=== PATIENT | female | born 1970 | race Caucasian/White ===

== ENCOUNTER 2018-06-30 05:06 | Day surgery (SDC) | payer OTHER ==
[2018-06-21 08:45] VITALS: BMI 23.8
[2018-06-30] MEDS ORDERED: ONDANSETRON 4 MG/2 ML VIAL IVPUSH PRN ×2 (10:18→13:36)
[2018-06-30] MEDS ORDERED: LACTATED RINGERS SOLUTION 1,000 ML IV SCH (10:30)
[2018-06-30] MEDS ORDERED: PROPOFOL 20 ML ONE ×4 (11:23)
[2018-06-30] MEDS ORDERED: LIDOCAINE HCL 1%, 10 MG/ML (20ML VIAL) ONE (11:33)
[2018-06-30] MEDS ORDERED: BUPIVACAINE HCL/PF 0.25% (2.5MG/ML) 10 ML VIAL ONE (11:33)
[2018-06-30] MEDS ORDERED: MIDAZOLAM HCL 2 MG/2 ML SINGLE DOSE VIAL ONE (11:38)
[2018-06-30] MEDS ORDERED: KETAMINE HCL 200 MG/20 ML VIAL ONE (11:53)
[2018-06-30] MEDS ORDERED: GLYCOPYRROLATE 0.2 MG/1 ML VIAL ONE (11:54)
[2018-06-30] MEDS ORDERED: ceFAZolin SODIUM 1 GM VIAL ONE (11:57)
[2018-06-30] MEDS ORDERED: BUPIVACAINE HCL/PF 0.5% (5MG/ML) 10 ML VIAL ONE (12:00)
[2018-06-30] MEDS ORDERED: LIDOCAINE 1%/EPI 1:100000 (20 ML MULTI DOSE VIAL) ONE (12:00)
[2018-06-30] MEDS ORDERED: BACITRACIN 15 GM TUBE TOPICAL OINTMENT ONE (12:02)
[2018-06-30] MEDS ORDERED: LIDOCAINE 1%/EPI 1:100000 (50 ML MULTI DOSE VIAL) INF ONE ×2 (12:12)
[2018-06-30] MEDS ORDERED: BUPIVACAINE HCL/PF 0.5% (5MG/ML) 10 ML VIAL IJ ONE ×2 (12:12)
--- NOTE | 2018-06-30 12:37 | OP ---
Operative Note - Note: Operative Date: 06/30/18 Pre-Operative Diagnosis: Cervical lymphadenopathy Operation: Left cervical lymph node excision Post-Operative Diagnosis: Same as Pre-op Surgeon: Jasper Boyd Bench Lay Out Technician: Sanjay Lopez Anesthesiologist/CANVAS BASTER: Escobar Frey Anesthesia: MAC Estimated Blood Loss (mls): 2 Operative Report Dictated: Yes
--- NOTE | 2018-06-30 12:38 | SURG ---
Surgery Drawing Frame Tender Note Drawing Frame Tender: Sanjay Lopez PA-C Date of Service: 06/30/18 Diagnosis: Left cervical lymphadenopathy Procedure: excision of left cervical lymph node I was present for the entirety of the operative procedure. For further detail, please refer to operative report. Visit type - Case Type Case Type: Scheduled - Emergency Emergency Visit: No - New patient This patient is new to me today: Yes Date on this admission: 06/30/18
[2018-06-30] MEDS ORDERED: ONDANSETRON 4 MG/2 ML VIAL ONE ×3 (12:45→16:16)
--- NOTE | 2018-06-30 14:25 | OP ---
DATE OF OPERATION: 06/30/2018 SURGICAL ATTENDING: Philip Mckeon MD FORENSIC MANAGER: ANAHI Holbrook PREOPERATIVE DIAGNOSIS: Left cervical lymph node. POSTOPERATIVE DIAGNOSIS: Left cervical lymph node. ANESTHESIA: Local with sedation. PROCEDURE: LEFT level 5 cervical lymph node biopsy. DESCRIPTION OF PROCEDURE: The patient was taken into the operating room and placed in a supine position. Given IV sedation. Prepped and draped in the usual sterile fashion. Neck ultrasound revealed a solitary enlarged lymph node in left level 5. Local anesthesia was administered, and a 2-cm horizontal incision was made in a left posterior triangle skin crease. This was carried down through subcutaneous tissues and platysma. The accessory nerve was identified, dissected, and preserved laterally. The lymph node was identified, dissected free from surrounding tissues, removed, and sent to Pathology for fresh evaluation. Hemostasis was achieved. The wound was then closed in 2 layers. Dermabond was placed. The patient was then awakened and taken to recovery in stable condition. Dr. Mckeon, attending surgeon was present throughout the entire procedure. HPILIP MCKEON M.D. [id number]
[2018-06-30] MEDS ORDERED: ACETAMINOPHEN INJECTION 100 ML IVPB ONE (14:28)
[2018-06-30] MEDS ORDERED: ACETAMINOPHEN 1000 MG/100 ML VIAL (NON FORMULARY) IVPB ONE (14:30)
[2018-06-30] MEDS ORDERED: ONDANSETRON 4 MG/2 ML VIAL IVPUSH ONE (16:20)
[2018-06-30 17:12] VITALS: BP 105/70; PULSE 71; TEMP 97.7
--- NOTE | 2018-06-30 18:58 | EKG ---
Test Reason : Blood Pressure : / mmHG Vent. Rate : 062 BPM Atrial Rate : 062 BPM P-R Int : 156 ms QRS Dur : 092 ms QT Int : 450 ms P-R-T Axes : 065 041 034 degrees QTc Int : 456 ms NORMAL SINUS RHYTHM NORMAL ECG NO PREVIOUS ECGS AVAILABLE Confirmed by BRONWYN OSBORN, MARGOTH ([id number]) on 06/30/2018 6:58:19 PM Referred By: Yonny MITCHELL Confirmed By:MARGOTH BARNHART MD
--- NOTE | 2018-07-11 15:59 | PATH ---
Surgical Pathology Report Patient Name: ZULEIMA ERVIN [facility]. Rec. #: [id number] /Age/Gender: 1970 (Age: 47) / F Account: [id number] Location: [facility] SURGICAL Taken: 06/30/2018 Received: 06/30/2018 Reported: 07/11/2018 Physicians: Jasper Boyd M.D. Specimen(s) Received LEFT LEVEL 5 CERVICAL LYMPH NODE Clinical History Left level V neck lymph node suspicious for lymphoma Final Diagnosis CERVICAL LYMPH NODE, LEFT, LEVEL V, EXCISION: FOLLICULAR LYMPHOMA, GRADE 1 -2 OUT OF 3, WITH A HIGH PROLIFERATIVE RATE. SEE COMMENT. Comment: The elliot architecture is effaced by a [id number] proliferation of atypical lymphoid follicles which lack polarity and tingible body macrophages. They also have attenuated mantle zones. The follicles are composed of mostly centrocytes and <15 centroblasts per high power field. Immunohistochemical study show the tumor cells to be positive for CD20, PAX-5, CD10, BCL-2, and BCL-6. They are negative for CD5, CD23, and cyclin D1. CD21 and CD23 highlight follicular dendritic cell mesh works (INTERMEDIATE). The proliferative rate is moderately elevated in many follicles (2-3+ out of 4+ by Ki-67 staining. IgD highlights attenuated mantle zones. 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 Low-grade follicular lymphoma with a higher proliferative rate may signify a more aggressive clinical course. This case was sent to Dr. Jb Xiao from [facility], [place], [place] ([id number]) the diagnosis above reflects his opinion. See [employer] Report (SPECIMEN #: [id number] AND [id number]) for additional details. Electronically Signed Chelsea Bledsoe M.D. Gross Description Received fresh labeled "left level V cervical lymph node," is a 1.8 x 1.3 x 0.6 cm perez lymph node. A life assurance representative portion is placed in RPMI solution and sent for flow cytometry. The remainder of the specimen is entirely submitted in one cassette. 06/30/201806/30/2018
== END 2018-06-30 17:00 | disposition home or self-care (01) ==
LOC: JASU-SURG 05:06
PROVIDERS: ATTEND Surgery
PROC: 07B20ZX Excision of Left Neck Lymphatic, Open Approach, Diagnostic (ICD-10-PCS; principal; 2018-06-30 11:00)
DX: R59.0 Localized enlarged lymph nodes (principal)
CPT/HCPCS: 84703; 88307-TC; 93005; 93010; 94760; J0131